=== PATIENT | male | born 1985 | race Caucasian/White ===

== ENCOUNTER 2017-03-13 15:28 | Emergency (ER) | payer BC, OTHER ==
[~2017-03-13] VITALS: Ht 190.5 cm; Wt 88.0 kg
[~2017-03-13 15:28] MED LIST: HUMALOG SQ; LANTUSP SQ; RANI150 PO
[2017-03-13 15:31] VITALS: BP 107/74; PULSE 74; RESP 16; TEMP 97.8; O2SAT 98
--- NOTE | 2017-03-13 15:37 | PD ---
HPI Chief Complaint: Injury Time Seen by Provider: 15:37 Travel History International Travel<30 days: No Contact w/Intl Traveler<30days: No Traveled to known affect area: No History of Present Illness HPI 31-year-old male presents to emergency Department with injury to the right lower leg and ankle. Patient states he was surfing when this leg Buckled the wrong way and he heard a crack. Patient denies pain in the distal right lateral ankle and also the right proximal tibia. Patient is a type I diabetic. Last ate at 1 PM. His pain is 8/10 and worsening. Denies tingling in the foot. Range of motion is limited secondary to pain. Has no known drug allergies. PFSH Past Medical History Cancer: No Cardiovascular Problems: No Diabetes: Yes (TYPE 1 ) Diminished Hearing: No Endocrine: Yes Genitourinary: No Immune Disorder: No Musculoskeletal: No Neurologic: No Psychiatric: No Reproductive: No Respiratory: No Thyroid Disease: No Social History Alcohol Use: No Tobacco Use: Yes (1 PPD) Substance Use: No Allergies-Medications (Allergen,Severity, Reaction): Coded Allergies: No Known Allergies (Verified , 03/13/17) Reported Meds & Prescriptions Reported Meds & Active Scripts Active Reported Lantus Inj (Insulin Glargine) 1,000 Unit/10 Ml Vial 12 Units SQ HS Novolog Inj (Insulin Aspart) 1,000 Unit/10 Ml Vial 0 SQ DIRECTED Sliding Scale as directed. Review of Systems Except as stated in HPI: all other systems reviewed are Neg General / Constitutional: No: Fever Eyes: No: Visual changes HENT: No: Headaches Cardiovascular: No: Chest Pain or Discomfort Respiratory: No: Shortness of Breath Gastrointestinal: No: Abdominal Pain Genitourinary: No: Dysuria Musculoskeletal: No: Pain Skin: No Rash Neurologic: No: Weakness Psychiatric: No: Depression Endocrine: No: Polydipsia Hematologic/Lymphatic: No: Easy Bruising Physical Exam Narrative GENERAL: Patient appears in mild to moderate distress. SKIN: Warm and dry. Normal color. Normal turgor. No open wounds or abrasions. No obvious ecchymosis currently. HEAD: Atraumatic. Normocephalic. EYES: Pupils equal and round. No scleral icterus. No injection or drainage. ENT: No nasal bleeding or discharge. Mucous membranes pink and moist. Pharynx is clear. Airway is patent. NECK: Trachea midline. Supple and nontender. CARDIOVASCULAR: Regular rate and rhythm. RESPIRATORY: No accessory muscle use. Clear to auscultation. Breath sounds equal bilaterally. GASTROINTESTINAL: Abdomen soft, non-tender, nondistended. Hepatic and splenic margins not palpable. MUSCULOSKELETAL: Extremities without clubbing, cyanosis, or edema. No obvious deformities. Patient has pelvic crepitus over the right distal fibula/lateral malleolus. As well as mild tenderness to the proximal fibula on the right. Foot appears normal. Right foot is neurovascularly intact. Limited movement secondary to pain. NEUROLOGICAL: Awake and alert. No obvious cranial nerve deficits. Motor grossly within normal limits. Five out of 5 muscle strength in the arms and legs. Normal speech. PSYCHIATRIC: Appropriate mood and affect; insight and judgment normal. Data Data Last Documented VS Vital Signs Date Time Temp Pulse Resp B/P Pulse Ox O2 Delivery O2 Flow Rate FiO2 03/13/17 15:31 97.8 74 16 107/74 98 Orders Ankle, Complete ([id number]) (03/13/17 15:41) Tibia/Fibula (Ap/Lat) (03/13/17 15:41) Ketorolac Inj (Toradol Inj) (03/13/17 15:45) Support Splint (03/13/17 16:21) Crutches (03/13/17 16:21) MDM Medical Decision Making Medical Screen Exam Complete: Yes Emergency Medical Condition: Yes Differential Diagnosis Right ankle fracture. Fibular fracture. Right ankle sprain. Narrative Course Patient is medically stable at time of exam. Ice pack is applied to the right ankle. X-rays ordered of the right ankle and fibula and tibia. 60 mg Toradol is given IM. Patient is kept nothing by mouth. X-rays of the right ankle show comminuted torus fracture of the distal fibula without displacement of the talus or widening of the joint space. There is also small fracture to the posterior tibia which is mildly displaced. Call was placed to Dr. Saldaña, the orthopedic on-call the patient's discussed. Patient is placed in a [place] Splint and crutches. Patient is to keep this area elevated and without weightbearing until seen by orthopedist. Patient is given Lortab 5/325 one every 6 hours when necessary pain #20. Patient is to call Dr. Saldaña office for follow-up visit. Diagnosis Primary Impression: Fracture of distal end of right fibula Qualified Code: S82.821A - Closed torus fracture of distal end of right fibula , initial encounter Referrals: Mario Saldaañ MD call for appointment Patient Instructions: Ankle Fracture (ED), Crutch Instructions (ED), General Instructions, Splint Care (ED) Departure Forms: Work Release Special Instructions: No weightbearing on right foot until cleared by orthopedist. Additional Instructions: X-rays of the right ankle show comminuted torus fracture of the distal fibula without displacement of the talus or widening of the joint space. There is also small fracture to the posterior tibia which is mildly displaced. Call was placed to Dr. Saldaña, the orthopedic on-call the patient's discussed. Patient is placed in a [place] Splint and crutches. Patient is to keep this area elevated and without weightbearing until seen by orthopedist. Patient is given Lortab 5/325 one every 6 hours when necessary pain #20. Patient is to call Dr. Saldaña office for follow-up visit. Med/Other Pt SpecificInfo: Prescription(s) given Disposition: 01 DISCHARGE HOME Condition: Stable [facility] Mar 13, 2017 15:37
[2017-03-13] MEDS ORDERED: KETOROLAC TROMETHAMINE 60 MG/2 ML (IM) VIAL IM ONE (15:45)
[2017-03-13] MEDS ORDERED: NOVOLOGP2 SQ (15:48)
[2017-03-13] MEDS ORDERED: LANTUS2P SQ (15:48)
--- NOTE | 2017-03-13 16:13 | RADHPO ---
EXAM DATE/TIME: 03/13/2017 15:51 [facility] COMPARISON: No previous studies available for comparison. INDICATIONS : Right ankle pain. MEDICAL HISTORY : Diabetes mellitus type I. SURGICAL HISTORY : None. ENCOUNTER: Initial ACUITY: 1 day PAIN SCORE: 8/10 LOCATION: Right lower extremity FINDINGS: AP, lateral and oblique views of the right ankle were obtained and demonstrate a mildly comminuted sp iral fracture involving the distal fibula beginning approximately 10 cm above the level of the ankle mortise. There is minimal distraction of the fracture fragments. The tibia appears intact. The ankle mortise is preserved. There is mild soft tissue swelling. CONCLUSION: Mildly comminuted spiral fracture of the distal fibula. Wilton Ramirez MD on March 13, 2017 at 16:10 Board Certified Radiologist. This report was verified electronically.
--- NOTE | 2017-03-13 16:14 | RADHPO ---
EXAM DATE/TIME: 03/13/2017 15:53 [facility] COMPARISON: ANKLE RIGHT COMPLETE ([id number]), March 13, 2017, 15:51. INDICATIONS : Right ankle and lower leg pain. MEDICAL HISTORY : Diabetes mellitus type I. SURGICAL HISTORY : None. ENCOUNTER: Initial ACUITY: 1 day PAIN SCORE: 8/10 LOCATION: Right lower extremity FINDINGS: AP and lateral views of the right tibia and fibula were obtained again demonstrated the spiral fractu re of the distal fibula. The tibia is intact. There is mild soft tissue swelling over the distal leg. CONCLUSION: Spiral fracture of the distal fibula again noted. Wilton Ramirez MD on March 13, 2017 at 16:11 Board Certified Radiologist. This report was verified electronically.
[2017-03-13] MEDS ORDERED: HYDR-3533 PO (16:53)
[2017-03-13 17:23] VITALS: RESP 16
== END 2017-03-13 17:47 | disposition home or self-care (01) ==
LOC: PHEFT 15:28
DX: S82.821A Torus fracture of lower end of right fibula, initial encounter for closed fracture (principal); E10.9 Type 1 diabetes mellitus without complications; X50.1XXA Overexertion from prolonged static or awkward postures, initial encounter; Y93.18 Activity, surfing, windsurfing and boogie boarding; Y92.832 Beach as the place of occurrence of the external cause; F17.210 Nicotine dependence, cigarettes, uncomplicated
CPT/HCPCS: 29515; 73590; 73610; 96372; 99283; E0113; J1885